=== PATIENT | female | born 1985 | race Caucasian/White ===

== ENCOUNTER → 2019-11-20 | Outpatient (CLI) | payer OTHER ==
--- NOTE | 2019-11-20 15:18 | XR ---
EXAMINATION TYPE: XR foot complete LT DATE OF EXAM: 11/20/2019 CLINICAL HISTORY: pain TECHNIQUE: Frontal, lateral and oblique images of the left foot are obtained. COMPARISON: None. FINDINGS: There is no acute fracture/dislocation evident. The joint spaces appear within normal card its. Plantar and dorsal calcaneal spur formation noted. Dorsal soft tissue swelling identified. IMPRESSION: There is no acute fracture or dislocation. ICD 10 NO FRACTURE, INITIAL EVALUATION
== END | disposition home or self-care (01) ==
LOC: RADXRMAIN 14:48
PROVIDERS: ATTEND Family Medicine
DX: M79.672 Pain in left foot (principal)

== ENCOUNTER 2020-04-12 00:40 | Emergency (ER) | payer OTHER ==
[2020-04-12 00:44] VITALS: BP 143/82; RESP 22; TEMP 99.3
[2020-04-12] MEDS ORDERED: ALBUTEROL NEBULIZED 2.5 MG/3 ML INHALATION STA ×2 (01:13→02:10)
[2020-04-12] MEDS ORDERED: IPRATROPIUM-ALBUTEROL 3 ML NEB INHALATION STA (01:13)
[2020-04-12] MEDS ORDERED: predniSONE 20 MG TAB PO STA (01:13)
--- NOTE | 2020-04-12 01:17 | ED ---
SOB HPI - General Chief Complaint: Shortness of Breath Stated Complaint: Chest tightness Time Seen by Provider: 04/12/20 00:58 Source: patient Mode of arrival: wheelchair Limitations: no limitations - History of Present Illness Initial Comments: his patient is a 34-year-old woman with history of asthma who complains of approximately 6-7 days of worsening symptoms similar to previous asthma exacerbations. He states that she is and that she has developed a nonproductive coughand shortness of breath and a feeling of chest tightness, though no lance pain. MD Complaint: shortness of breath, cough Onset/Timin -: days(s) Consistency: constant Improves With: nothing Worsens With: nothing Known History Of: asthma Associated Symptoms: cough Treatments Prior to Arrival: bronchodilator - Related Data Home Oxygen Therapy: No Home Medications Medication Instructions Recorded Confirmed Citalopram Hydrobromide [CeleXA] 40 mg PO DAILY 07/24/14 03/03/16 Previous Rx's Medication Instructions Recorded predniSONE 60 mg PO DAILY #30 tab 04/12/20 Allergies Allergy/AdvReac Type Severity Reaction Status Date / Time No Known Allergies Allergy Verified 04/12/20 00:45 Review of Systems ROS Statement: Those systems with pertinent positive or pertinent negative responses have been documented in the HPI. ROS Other: All systems not noted in ROS Statement are negative. Constitutional: Denies: fever, chills, weakness ENT: Denies: throat pain, congestion Respiratory: Reports: cough, dyspnea, wheezes. Denies: hemoptysis Cardiovascular: Denies: chest pain, palpitations, edema, syncope Gastrointestinal: Denies: abdominal pain, nausea, vomiting Genitourinary: Denies: dysuria, hematuria Musculoskeletal: Denies: back pain Skin: Denies: rash Neurological: Denies: headache, weakness Past Medical History Past Medical History: Asthma History of Any Multi-Drug Resistant Organisms: MRSA Date of last positivie culture/infection: 2012 MDRO Source:: lt knee Past Surgical History: Appendectomy, Section, Orthopedic Surgery, Tonsillectomy Additional Past Surgical History / Comment(s): wrist Past Psychological History: Anxiety, Depression Smoking Status: Never smoker Past Alcohol Use History: Rare Past Drug Use History: None Reported General Exam Limitations: no limitations General appearance: alert, in no apparent distress Head exam: Present: atraumatic, normocephalic Eye exam: Present: normal appearance. Absent: scleral icterus, conjunctival injection ENT exam: Present: normal oropharynx Neck exam: Present: normal inspection Respiratory exam: Present: wheezes. Absent: respiratory distress, rales, rhonchi, stridor, accessory muscle use, decreased breath sounds Cardiovascular Exam: Present: regular rate, normal rhythm, normal heart sounds. Absent: systolic murmur, diastolic murmur, rubs, gallop GI/Abdominal exam: Present: soft. Absent: tenderness Extremities exam: Present: normal inspection, normal capillary refill. Absent: pedal edema, calf tenderness Back exam: Present: normal inspection. Absent: CVA tenderness (R), CVA tenderness (L) Neurological exam: Present: alert Skin exam: Present: warm, dry, intact, normal color. Absent: rash Course Vital Signs 04/12/20 04/12/20 04/12/20 00:42 01:35 01:51 Temperature 99.3 F Pulse Rate 62 68 76 Respiratory 22 Rate Blood Pressure 143/82 O2 Sat by Pulse 100 Oximetry 04/12/20 04/12/20 02:21 02:30 Temperature Pulse Rate 76 76 Respiratory Rate Blood Pressure O2 Sat by Pulse Oximetry Medical Decision Making - Lab Data Lab Results 04/12/20 Range/Units 01:30 Coronavirus (PCR) Not Detected (Not Detectd) Disposition Clinical Impression: Asthma with acute exacerbation Disposition: HOME SELF-CARE Condition: Good Instructions (If sedation given, give patient instructions): Asthma (ED) Prescriptions: predniSONE 60 mg PO DAILY #30 tab Is patient prescribed a controlled substance at d/c from ED?: No Referrals: Sami Carter III, MD [Primary Care Provider] - 1-2 days
[2020-04-12 01:52] VITALS: PULSE 76
== END 2020-04-12 03:11 | disposition home or self-care (01) ==
LOC: EC 00:40
DX: J45.901 Unspecified asthma with (acute) exacerbation (principal); F41.9 Anxiety disorder, unspecified; F32.9 Major depressive disorder, single episode, unspecified; Z79.899 Other long term (current) drug therapy; Z20.828 Contact with and (suspected) exposure to other viral communicable diseases; Z86.14 Personal history of Methicillin resistant Staphylococcus aureus infection
CPT/HCPCS: 94640 ×2; 87635; 99285; J7512

== ENCOUNTER → 2021-01-15 | Outpatient (CLI) | payer BC ==
[2021-01-15 23:32] LABS: Basophils # (A) 0.03 X 10*3/uL (0.00-0.10); Basophils % (A) 0.3 %; Eosinophils # (A) 0.09 X 10*3/uL (0.04-0.35); HCT 40.4 % (37.2-46.3); HGB 12.6 g/dL (12.0-15.0); Lymphocytes # (A) 2.43 X 10*3/uL (0.90-5.00); Lymphocytes % (A) 26.4 %; MCHC 31.2 g/dL (32.0-37.0); MCV 89.8 fL (80.0-97.0); Mean Platelet Volume 11.6 fL (9.5-12.2); Monocytes # (A) 0.66 X 10*3/uL (0.20-1.00); Monocytes % (A) 7.2 %; Neutrophils # (A) 5.96 X 10*3/uL (1.80-7.70); Neutrophils % (A) 64.8 %; Platelet Count 185 X 10*3/uL (140-440); RDW 12.9 % (11.5-14.5)
[2021-01-16 01:23] LABS: Hemoglobin A1C 5.3 % (4.0-6.0)
[2021-01-16 14:45] LABS: HIV 2 AB Non-Reactive (Non-Reactive); HIV AB P24 Non-Reactive (Non-Reactive); HIV P24 AG Non-Reactive (Non-Reactive)
[2021-01-16 18:53] LABS: Uric Acid 4.5 mg/dL (2.9-7.7)
== END | disposition home or self-care (01) ==
LOC: LABWHC1 15:12
PROVIDERS: ATTEND Obstetrics & Gynecology
DX: Z34.81 Encounter for supervision of other normal pregnancy, first trimester (principal); Z3A.00 Weeks of gestation of pregnancy not specified
CPT/HCPCS: 36415; 82950; 83036; 84450; 84460; 84550; 85025; 86762; 86780; 86900; 86901; 87390

== ENCOUNTER 2021-02-18 08:39 | Emergency (ER) | payer BC, OTHER ==
[2021-02-18 08:43] VITALS: RESP 18; TEMP 97.9
[2021-02-18] MEDS ORDERED: MAG HYDROX/AL HYDROX/SIMETH 30 ML CUP PO STA (08:56)
[2021-02-18] MEDS ORDERED: SODIUM CHLORIDE 0.9% 1,000 ML IV ONE (08:56)
--- NOTE | 2021-02-18 08:59 | ED ---
Abdominal Pain HPI - General Chief Complaint: Abdominal Pain Stated Complaint: upper abd pain Time Seen by Provider: 02/18/21 08:47 Source: patient, RN notes reviewed Mode of arrival: ambulatory Limitations: no limitations - History of Present Illness Initial Comments: This a 35-year-old female presents emergency Department chief complaint of upper upper quadrant pain. Patient states has been present last few days. Patient denies any significant heartburn, nausea vomiting diarrhea constipation no dysuria no hematuria patient is currently 17 weeks she's had prior appendectomy and section. Patient denies fevers chills chest pain shortness breath headache dizziness. - Related Data Home Medications Medication Instructions Recorded Confirmed Citalopram Hydrobromide [CeleXA] 40 mg PO DAILY 07/24/14 03/03/16 Previous Rx's Medication Instructions Recorded predniSONE 60 mg PO DAILY #30 tab 04/12/20 Allergies Allergy/AdvReac Type Severity Reaction Status Date / Time No Known Allergies Allergy Verified 02/18/21 08:41 Review of Systems ROS Statement: Those systems with pertinent positive or pertinent negative responses have been documented in the HPI. ROS Other: All systems not noted in ROS Statement are negative. Past Medical History Past Medical History: Asthma History of Any Multi-Drug Resistant Organisms: MRSA Date of last positivie culture/infection: 2012 MDRO Source:: lt knee Past Surgical History: Appendectomy, Section, Orthopedic Surgery, Tonsillectomy Additional Past Surgical History / Comment(s): wrist Past Psychological History: Anxiety, Depression Smoking Status: Never smoker Past Alcohol Use History: Rare Past Drug Use History: None Reported General Exam Limitations: no limitations General appearance: alert, in no apparent distress Head exam: Present: atraumatic, normocephalic, normal inspection Neck exam: Present: normal inspection. Absent: tenderness, meningismus, lymphadenopathy Respiratory exam: Present: normal lung sounds bilaterally. Absent: respiratory distress, wheezes, rales, rhonchi, stridor Cardiovascular Exam: Present: regular rate, normal rhythm, normal heart sounds. Absent: systolic murmur, diastolic murmur, rubs, gallop, clicks GI/Abdominal exam: Present: soft, tenderness (Left upper quadrant), normal bowel sounds. Absent: distended, guarding, rebound, rigid Back exam: Absent: CVA tenderness (R), CVA tenderness (L) Neurological exam: Present: alert Skin exam: Present: warm, dry, intact, normal color. Absent: rash Course Vital Signs 02/18/21 08:41 Temperature 97.9 F Pulse Rate 64 Respiratory 18 Rate Blood Pressure 134/85 O2 Sat by Pulse 100 Oximetry Medical Decision Making - Medical Decision Making Labs, urinalysis, ultrasound are all unremarkable. Patient had no relief with Maalox this may be related to abdominal wall pain patient feels comfortable discharged. Return parameters were discussed. - Lab Data Result diagrams: 02/18/21 09:09 02/18/21 09:09 Lab Results 02/18/21 02/18/21 02/18/21 Range/Units 09:09 09:09 09:09 WBC 9.4 (3.8-10.6) k/uL RBC 4.38 (3.80-5.40) m/uL Hgb 12.9 (11.4-16.0) gm/dL Hct 38.6 (34.0-46.0) % MCV 88.1 (80.0-100.0) fL MCH 29.6 (25.0-35.0) pg MCHC 33.6 (31.0-37.0) g/dL RDW 12.7 (11.5-15.5) % Plt Count 175 (150-450) k/uL MPV 9.1 Neutrophils % 74 % Lymphocytes % 19 % Monocytes % 4 % Eosinophils % 2 % Basophils % 0 % Neutrophils # 6.9 (1.3-7.7) k/uL Lymphocytes # 1.8 (1.0-4.8) k/uL Monocytes # 0.4 (0-1.0) k/uL Eosinophils # 0.1 (0-0.7) k/uL Basophils # 0.0 (0-0.2) k/uL Sodium 135 L (137-145) mmol/L Potassium 4.4 (3.5-5.1) mmol/L Chloride 105 (98-107) mmol/L Carbon Dioxide 24 (22-30) mmol/L Anion Gap 6 mmol/L BUN 9 (7-17) mg/dL Creatinine 0.55 (0.52-1.04) mg/dL Est GFR (CKD-EPI)AfAm >90 (>60 ml/min/1.73 sqM) Est GFR (CKD-EPI)NonAf >90 (>60 ml/min/1.73 sqM) Glucose 107 H (74-99) mg/dL Calcium 9.3 (8.4-10.2) mg/dL Total Bilirubin 0.4 (0.2-1.3) mg/dL AST 16 (14-36) U/L ALT 12 (4-34) U/L Alkaline Phosphatase 49 (38-126) U/L Total Protein 6.1 L (6.3-8.2) g/dL Albumin 3.3 L (3.5-5.0) g/dL Urine Color Light Yellow Urine Appearance Clear (Clear) Urine pH 6.5 (5.0-8.0) Ur Specific [place] 1.008 (1.001-1.035) Urine Protein Negative (Negative) Urine Glucose (UA) Negative (Negative) Urine Ketones Negative (Negative) Urine Blood Negative (Negative) Urine Nitrite Negative (Negative) Urine Bilirubin Negative (Negative) Urine Urobilinogen <2.0 (<2.0) mg/dL Ur Leukocyte Esterase Negative (Negative) Heterophile Antibody (Negative) 02/18/21 Range/Units 09:09 WBC (3.8-10.6) k/uL RBC (3.80-5.40) m/uL Hgb (11.4-16.0) gm/dL Hct (34.0-46.0) % MCV (80.0-100.0) fL MCH (25.0-35.0) pg MCHC (31.0-37.0) g/dL RDW (11.5-15.5) % Plt Count (150-450) k/uL MPV Neutrophils % % Lymphocytes % % Monocytes % % Eosinophils % % Basophils % % Neutrophils # (1.3-7.7) k/uL Lymphocytes # (1.0-4.8) k/uL Monocytes # (0-1.0) k/uL Eosinophils # (0-0.7) k/uL Basophils # (0-0.2) k/uL Sodium (137-145) mmol/L Potassium (3.5-5.1) mmol/L Chloride (98-107) mmol/L Carbon Dioxide (22-30) mmol/L Anion Gap mmol/L BUN (7-17) mg/dL Creatinine (0.52-1.04) mg/dL Est GFR (CKD-EPI)AfAm (>60 ml/min/1.73 sqM) Est GFR (CKD-EPI)NonAf (>60 ml/min/1.73 sqM) Glucose (74-99) mg/dL Calcium (8.4-10.2) mg/dL Total Bilirubin (0.2-1.3) mg/dL AST (14-36) U/L ALT (4-34) U/L Alkaline Phosphatase (38-126) U/L Total Protein (6.3-8.2) g/dL Albumin (3.5-5.0) g/dL Urine Color Urine Appearance (Clear) Urine pH (5.0-8.0) Ur Specific [place] (1.001-1.035) Urine Protein (Negative) Urine Glucose (UA) (Negative) Urine Ketones (Negative) Urine Blood (Negative) Urine Nitrite (Negative) Urine Bilirubin (Negative) Urine Urobilinogen (<2.0) mg/dL Ur Leukocyte Esterase (Negative) Heterophile Antibody Negative (Negative) Disposition Clinical Impression: Abdominal pain Disposition: HOME SELF-CARE Condition: Stable Instructions (If sedation given, give patient instructions): Abdominal Pain (ED) Additional Instructions: Please return to the Emergency Department if symptoms worsen or any other tavares rns. Is patient prescribed a controlled substance at d/c from ED?: No Referrals: Sami Carter III, MD [Primary Care Provider] - 1-2 days Time of Disposition: 10:34
[2021-02-18 09:23] LABS: Basophils % (A) 0 %; Eosinophils # (A) 0.1 k/uL (0-0.7); Eosinophils % (A) 2 %; HCT 38.6 % (34.0-46.0); HGB 12.9 gm/dL (11.4-16.0); Lymphocytes # (A) 1.8 k/uL (1.0-4.8); Lymphocytes % (A) 19 %; MCH 29.6 pg (25.0-35.0); MCHC 33.6 g/dL (31.0-37.0); MCV 88.1 fL (80.0-100.0); Mean Platelet Volume 9.1; Monocytes # (A) 0.4 k/uL (0-1.0); Monocytes % (A) 4 %; Neutrophils # (A) 6.9 k/uL (1.3-7.7); Neutrophils % (A) 74 %; Platelet Count 175 k/uL (150-450); RBC 4.38 m/uL (3.80-5.40); RDW 12.7 % (11.5-15.5); WBC 9.4 k/uL (3.8-10.6)
[2021-02-18 09:27] LABS: Appearance,Urine Clear (Clear); Bilirubin,Urine Negative (Negative); Blood,Urine Negative (Negative); Color,Urine Light Yellow; Glucose,Urine (UA) Negative (Negative); Ketones,Urine Negative (Negative); Leukocyte Esterase,Urine Negative (Negative); Nitrite,Urine Negative (Negative); PH, Urine 6.5 (5.0-8.0); Protein,Urine Negative (Negative); Specific Gravity,Urine 1.008 (1.001-1.035); Urobilinogen,Urine <2.0 mg/dL (<2.0)
[2021-02-18 09:35] LABS: ALT 12 U/L (4-34); AST 16 U/L (14-36); African American GFR (CKD) >90 (>60 ml/min/1.73 sqM); Albumin 3.3 g/dL (3.5-5.0); Alkaline Phosphatase 49 U/L (38-126); Anion Gap 6 mmol/L; Blood Urea Nitrogen 9 mg/dL (7-17); Calcium 9.3 mg/dL (8.4-10.2); Carbon Dioxide 24 mmol/L (22-30); Chloride 105 mmol/L (98-107); Glucose 107 mg/dL (74-99); Non-African American GFR(CKD) >90 (>60 ml/min/1.73 sqM); Potassium 4.4 mmol/L (3.5-5.1); Sodium 135 mmol/L (137-145); Total Bilirubin 0.4 mg/dL (0.2-1.3); Total Protein 6.1 g/dL (6.3-8.2)
--- NOTE | 2021-02-18 09:53 | US ---
EXAMINATION TYPE: US abdomen limited DATE OF EXAM: 02/18/2021 COMPARISON: NONE CLINICAL HISTORY: LUQ pain. EXAM MEASUREMENTS: Spleen: 14.6 cm Left Kidney: 14.1 x 6.0 x 6.8 cm GB wall: 0.3 cm CBD: 0.4 cm 1. Spleen: wnl 2. Left Kidney: No hydronephrosis or masses seen 3. GB no stones seen Spleen is mildly enlarged. No surrounding ascites or focal intrasplenic mass. No left-sided hydroneph rosis. Left kidney slightly enlarged in size. Gallbladder seen without stones. No extrahepatic biliar y dilatation. IMPRESSION: No acute findings identified on limited abdominal ultrasound.
[2021-02-18 10:54] VITALS: BP 128/80; PULSE 72
== END 2021-02-18 10:53 | disposition home or self-care (01) ==
LOC: EC 08:39
DX: O26.892 Other specified pregnancy related conditions, second trimester (principal); R10.12 Left upper quadrant pain; O99.512 Diseases of the respiratory system complicating pregnancy, second trimester; J45.909 Unspecified asthma, uncomplicated; O99.342 Other mental disorders complicating pregnancy, second trimester; F32.9 Major depressive disorder, single episode, unspecified; Z79.52 Long term (current) use of systemic steroids; Z79.899 Other long term (current) drug therapy; Z3A.17 17 weeks gestation of pregnancy
CPT/HCPCS: 36415; 76705; 80053; 81003; 85025; 86308; 96360; 99284

== ENCOUNTER 2021-02-19 08:46 | Emergency (ER) | payer BC ==
[2021-02-19 08:59] VITALS: RESP 18; TEMP 98.3
[2021-02-19] MEDS ORDERED: SODIUM CHLORIDE 0.9% 1,000 ML IV STA (09:16)
--- NOTE | 2021-02-19 09:31 | ED ---
Abdominal Pain HPI - General Chief Complaint: Abdominal Pain Stated Complaint: LUQ pain, Revisit Time Seen by Provider: 02/19/21 09:08 Source: patient, RN notes reviewed Mode of arrival: ambulatory Limitations: no limitations - History of Present Illness Initial Comments: This a 35-year-old female presents emergency Department with chief complaint of upper abdominal lower chest discomfort. She states it started last couple days she is currently seen states seemed to get worse. She's not feel short of breath states it does hurt when she leans forward she has some pain and radiates towards her left anterior shoulder region no palpitations no fevers chills no night sweats no exertional symptoms denies any lower abdominal pain. Patient is currently symptom weeks has had prior sections no complaints of vaginal bleeding vaginal discharge no history of PE or DVT patient is currently taking aspirin as she states she was told she was advanced maternal age patient states it does hurt if you press on her chest. - Related Data Home Medications Medication Instructions Recorded Confirmed Aspirin EC [Ecotrin Low Dose] 81 mg PO HS 02/19/21 02/19/21 Doi-Qxuk-Dtedc Acid 1 cap PO DAILY 02/19/21 02/19/21 [-U Capsule (formulary)] Allergies Allergy/AdvReac Type Severity Reaction Status Date / Time No Known Allergies Allergy Verified 02/19/21 09:18 Review of Systems ROS Statement: Those systems with pertinent positive or pertinent negative responses have been documented in the HPI. ROS Other: All systems not noted in ROS Statement are negative. Past Medical History Past Medical History: Asthma History of Any Multi-Drug Resistant Organisms: MRSA Date of last positivie culture/infection: 2012 MDRO Source:: lt knee Past Surgical History: Appendectomy, Section, Orthopedic Surgery, Tonsillectomy Additional Past Surgical History / Comment(s): wrist Past Psychological History: Anxiety, Depression Smoking Status: Never smoker Past Alcohol Use History: Rare Past Drug Use History: None Reported General Exam Limitations: no limitations General appearance: alert, in no apparent distress Head exam: Present: atraumatic, normocephalic, normal inspection Eye exam: Present: normal appearance, PERRL, EOMI. Absent: scleral icterus, conjunctival injection, periorbital swelling ENT exam: Present: normal exam, mucous membranes moist Neck exam: Present: normal inspection, full ROM. Absent: tenderness, meningismus, lymphadenopathy Respiratory exam: Present: normal lung sounds bilaterally, chest wall tenderness (Moderate left). Absent: respiratory distress, wheezes, rales, rhonchi, stridor Cardiovascular Exam: Present: regular rate, normal rhythm, normal heart sounds. Absent: systolic murmur, diastolic murmur, rubs, gallop, clicks GI/Abdominal exam: Present: soft, normal bowel sounds. Absent: distended, tenderness, guarding, rebound, rigid Back exam: Absent: CVA tenderness (R), CVA tenderness (L) Neurological exam: Present: alert Course Vital Signs 02/19/21 02/19/21 08:55 10:58 Temperature 98.3 F Pulse Rate 86 82 Respiratory 18 18 Rate Blood Pressure 135/85 139/80 O2 Sat by Pulse 99 99 Oximetry Medical Decision Making - Medical Decision Making X-ray, labs EKG unremarkable. Patient is reproducible chest wall pain this may be related to costochondritis. Patient we discharged in stable condition return parameters discussed. - Lab Data Result diagrams: 02/19/21 09:20 02/19/21 09:20 Lab Results 02/19/21 02/19/21 02/19/21 Range/Units 09:20 09:20 09:20 WBC 9.4 (3.8-10.6) k/uL RBC 4.38 (3.80-5.40) m/uL Hgb 13.3 (11.4-16.0) gm/dL Hct 38.4 (34.0-46.0) % MCV 87.6 (80.0-100.0) fL MCH 30.4 (25.0-35.0) pg MCHC 34.7 (31.0-37.0) g/dL RDW 12.8 (11.5-15.5) % Plt Count 162 (150-450) k/uL MPV 8.6 Neutrophils % 75 % Lymphocytes % 18 % Monocytes % 3 % Eosinophils % 2 % Basophils % 0 % Neutrophils # 7.1 (1.3-7.7) k/uL Lymphocytes # 1.7 (1.0-4.8) k/uL Monocytes # 0.3 (0-1.0) k/uL Eosinophils # 0.2 (0-0.7) k/uL Basophils # 0.0 (0-0.2) k/uL Sodium 135 L (137-145) mmol/L Potassium 4.1 (3.5-5.1) mmol/L Chloride 108 H (98-107) mmol/L Carbon Dioxide 19 L (22-30) mmol/L Anion Gap 8 mmol/L BUN 8 (7-17) mg/dL Creatinine 0.45 L (0.52-1.04) mg/dL Est GFR (CKD-EPI)AfAm >90 (>60 ml/min/1.73 sqM) Est GFR (CKD-EPI)NonAf >90 (>60 ml/min/1.73 sqM) Glucose 111 H (74-99) mg/dL Plasma Lactic Acid Roger (0.7-2.0) mmol/L Calcium 9.1 (8.4-10.2) mg/dL Total Bilirubin 0.5 (0.2-1.3) mg/dL AST 16 (14-36) U/L ALT 12 (4-34) U/L Alkaline Phosphatase 48 (38-126) U/L Troponin I (0.000-0.034) ng/mL C-Reactive Protein 2.1 H (<1.0) mg/dL Total Protein 6.2 L (6.3-8.2) g/dL Albumin 3.4 L (3.5-5.0) g/dL Amylase 62 (30-110) U/L Lipase 109 (23-300) U/L Urine Color Light Yellow Urine Appearance Clear (Clear) Urine pH 7.0 (5.0-8.0) Ur Specific [place] 1.005 (1.001-1.035) Urine Protein Negative (Negative) Urine Glucose (UA) Negative (Negative) Urine Ketones Negative (Negative) Urine Blood Negative (Negative) Urine Nitrite Negative (Negative) Urine Bilirubin Negative (Negative) Urine Urobilinogen <2.0 (<2.0) mg/dL Ur Leukocyte Esterase Negative (Negative) 02/19/21 02/19/21 Range/Units 09:20 09:20 WBC (3.8-10.6) k/uL RBC (3.80-5.40) m/uL Hgb (11.4-16.0) gm/dL Hct (34.0-46.0) % MCV (80.0-100.0) fL MCH (25.0-35.0) pg MCHC (31.0-37.0) g/dL RDW (11.5-15.5) % Plt Count (150-450) k/uL MPV Neutrophils % % Lymphocytes % % Monocytes % % Eosinophils % % Basophils % % Neutrophils # (1.3-7.7) k/uL Lymphocytes # (1.0-4.8) k/uL Monocytes # (0-1.0) k/uL Eosinophils # (0-0.7) k/uL Basophils # (0-0.2) k/uL Sodium (137-145) mmol/L Potassium (3.5-5.1) mmol/L Chloride (98-107) mmol/L Carbon Dioxide (22-30) mmol/L Anion Gap mmol/L BUN (7-17) mg/dL Creatinine (0.52-1.04) mg/dL Est GFR (CKD-EPI)AfAm (>60 ml/min/1.73 sqM) Est GFR (CKD-EPI)NonAf (>60 ml/min/1.73 sqM) Glucose (74-99) mg/dL Plasma Lactic Acid Roger 0.7 (0.7-2.0) mmol/L Calcium (8.4-10.2) mg/dL Total Bilirubin (0.2-1.3) mg/dL AST (14-36) U/L ALT (4-34) U/L Alkaline Phosphatase (38-126) U/L Troponin I <0.012 (0.000-0.034) ng/mL C-Reactive Protein (<1.0) mg/dL Total Protein (6.3-8.2) g/dL Albumin (3.5-5.0) g/dL Amylase (30-110) U/L Lipase (23-300) U/L Urine Color Urine Appearance (Clear) Urine pH (5.0-8.0) Ur Specific [place] (1.001-1.035) Urine Protein (Negative) Urine Glucose (UA) (Negative) Urine Ketones (Negative) Urine Blood (Negative) Urine Nitrite (Negative) Urine Bilirubin (Negative) Urine Urobilinogen (<2.0) mg/dL Ur Leukocyte Esterase (Negative) Disposition Clinical Impression: Chest wall pain Disposition: HOME SELF-CARE Condition: Stable Instructions (If sedation given, give patient instructions): Chest Pain (ED) Additional Instructions: Please return to the Emergency Department if symptoms worsen or any other concerns. Is patient prescribed a controlled substance at d/c from ED?: No Referrals: Sami Carter III, MD [Primary Care Provider] - 1-2 days Time of Disposition: 11:13
[2021-02-19 09:38] LABS: Basophils % (A) 0 %; Eosinophils # (A) 0.2 k/uL (0-0.7); Eosinophils % (A) 2 %; HCT 38.4 % (34.0-46.0); HGB 13.3 gm/dL (11.4-16.0); Lymphocytes # (A) 1.7 k/uL (1.0-4.8); Lymphocytes % (A) 18 %; MCH 30.4 pg (25.0-35.0); MCHC 34.7 g/dL (31.0-37.0); MCV 87.6 fL (80.0-100.0); Mean Platelet Volume 8.6; Monocytes # (A) 0.3 k/uL (0-1.0); Monocytes % (A) 3 %; Neutrophils # (A) 7.1 k/uL (1.3-7.7); Neutrophils % (A) 75 %; Platelet Count 162 k/uL (150-450); RBC 4.38 m/uL (3.80-5.40); RDW 12.8 % (11.5-15.5); WBC 9.4 k/uL (3.8-10.6)
[2021-02-19 09:53] LABS: Appearance,Urine Clear (Clear); Bilirubin,Urine Negative (Negative); Blood,Urine Negative (Negative); Color,Urine Light Yellow; Glucose,Urine (UA) Negative (Negative); Ketones,Urine Negative (Negative); Leukocyte Esterase,Urine Negative (Negative); Nitrite,Urine Negative (Negative); Protein,Urine Negative (Negative); Specific Gravity,Urine 1.005 (1.001-1.035); Urobilinogen,Urine <2.0 mg/dL (<2.0)
[2021-02-19 09:57] LABS: ALT 12 U/L (4-34); AST 16 U/L (14-36); African American GFR (CKD) >90 (>60 ml/min/1.73 sqM); Albumin 3.4 g/dL (3.5-5.0); Alkaline Phosphatase 48 U/L (38-126); Amylase 62 U/L (30-110); Anion Gap 8 mmol/L; Blood Urea Nitrogen 8 mg/dL (7-17); C Reactive Protein 2.1 mg/dL (<1.0); Calcium 9.1 mg/dL (8.4-10.2); Carbon Dioxide 19 mmol/L (22-30); Chloride 108 mmol/L (98-107); Glucose 111 mg/dL (74-99); Lipase 109 U/L (23-300); Non-African American GFR(CKD) >90 (>60 ml/min/1.73 sqM); Potassium 4.1 mmol/L (3.5-5.1); Sodium 135 mmol/L (137-145); Total Bilirubin 0.5 mg/dL (0.2-1.3); Total Protein 6.2 g/dL (6.3-8.2)
--- NOTE | 2021-02-19 10:33 | XR ---
EXAMINATION TYPE: XR chest 2V DATE OF EXAM: 02/19/2021 COMPARISON: NONE HISTORY: Left-sided chest pain, currently 17 weeks . TECHNIQUE: Frontal and lateral views of the chest are obtained. FINDINGS: Low lung volumes. There is no focal air space opacity, pleural effusion, or pneumothorax se en. The cardiac silhouette size is within normal limits. The osseous structures are intact. Dupuyer ing EKG leads. IMPRESSION: No acute cardiopulmonary process.
[2021-02-19 10:59] VITALS: BP 139/80; PULSE 82
== END 2021-02-19 11:19 | disposition home or self-care (01) ==
LOC: EC 08:46
DX: O26.892 Other specified pregnancy related conditions, second trimester (principal); O34.219 Maternal care for unspecified type scar from previous cesarean delivery; O99.512 Diseases of the respiratory system complicating pregnancy, second trimester; R07.89 Other chest pain; J45.909 Unspecified asthma, uncomplicated; F41.9 Anxiety disorder, unspecified; F32.9 Major depressive disorder, single episode, unspecified; Z3A.17 17 weeks gestation of pregnancy; Z79.82 Long term (current) use of aspirin; Z90.49 Acquired absence of other specified parts of digestive tract
CPT/HCPCS: 36415; 71046; 80053; 81003; 82150; 83605; 83690; 84484; 85025; 86140; 93005; 96360; 99285

== ENCOUNTER → 2022-07-02 | Outpatient (CLI) | payer BC ==
--- NOTE | 2022-07-02 11:53 | US ---
EXAMINATION TYPE: US venous doppler duplex UE LT DATE OF EXAM: 07/02/2022 COMPARISON: NONE CLINICAL HISTORY: I82.629 DVT. pain and redness patient donates plasma. SIDE PERFORMED: Left Left Arm: Negative for DVT IMPRESSION: 1 left upper extremity ultrasound negative for deep venous spondylosis.
== END | disposition home or self-care (01) ==
LOC: RADUSWWP 10:59
PROVIDERS: ATTEND Internal Medicine Interventional Cardiology
DX: I82.629 Acute embolism and thrombosis of deep veins of unspecified upper extremity (principal)

== ENCOUNTER → 2022-10-14 | Outpatient (CLI) | payer BC ==
[2022-10-14 13:19] VITALS: BP 125/86; PULSE 80; TEMP 99; BMI 57.4
--- NOTE | 2022-10-14 15:54 | P.HPBAR ---
Bariatric H&P - History & Physicial H&P Date: 10/14/22 History & Physicial: Visit/CC: initial clinic visit Patient initial contact: Initial weight: Initial weight in pounds: Height: 5 ft 4 in Initial BMI: Last weight: Current weight: 151.953 kg Current weight in pounds: 335.00 Current BMI: 57.4 [place] body weight (based on NIH guidelines): 54.431 kg Excess body weight loss: The patient is a 37 year-old F who presents for Bariatric Assessment. Patient comes in interested in sleeve gastrectomy. BMI 57. No tobacco use. Patient has minimal GERD symptoms. Some exercise-induced asthma. States she does not snore and has no history of sleep apnea. Patient has 4 children at home with her youngest being 14 months. No history of known hernias. Abdominal surgeries include and appendectomy. No history of DVT or dysphagia. Review of Systems The patient denies any acute changes in vision or hearing, no dysphagia or odynophagia, no chest pain or shortness of breath, no dysuria or hematuria, no headache, no runny nose, no rectal bleeding or melena, no unexplained weight loss Past Medical History Past Medical History: Asthma History of Any Multi-Drug Resistant Organisms: MRSA Year Discovered:: 2012 MDRO Source:: lt knee Past Surgical History: Appendectomy, Section, Orthopedic Surgery, Tonsillectomy Additional Past Surgical History / Comment(s): LT wrist SX Past Anesthesia/Blood Transfusion Reactions: No Reported Reaction Past Psychological History: Anxiety, Depression Additional Psychological History / Comment(s): NOT ON ANY MEDS AT THIS TIME Smoking Status: Never smoker Past Alcohol Use History: None Reported, Rare Past Drug Use History: None Reported - Past Family History Mother Family Medical History: Hyperlipidemia, Hypertension, Rheumatoid Arthritis (RA) Surgical - Exam Vital Signs Temp Pulse BP 99 F 80 125/86 10/14/22 13:14 10/14/22 13:14 10/14/22 13:14 Physical exam: General: Well-developed, well-nourished HEENT: Normocephalic, sclerae nonicteric Abdomen: Nontender, nondistended Extremities: No edema Neuro: Alert and oriented Bariatric Assessment & Plan (1) Morbid obesity with BMI of 50.0-59.9, adult Narrative/Plan: 37-year-old female with morbid obesity. Surgical options reviewed with the patient in detail. Risks and benefits of the procedures along with the expected postoperative course and weight loss discussed in detail. All questions answered. The patient remains interested in sleeve gastrectomy at this time. We'll plan preoperative EGD. We'll obtain appropriate preoperative documentation from patient's primary care physician and psychological assessment. Status: Acute Bariatric Checklist Checklist: Plan: Checklist: EGD: 1. Hiatal hernia: 2. H. Pylori: HgbA1c: Vitamin D: Smoking: Never smoker Primary care physician referral: dr yost Psychiatry clearance: Cardiology clearance: Sleep study: Diet journal: VTE risk score: VTE risk level: Rehab needs at discharge:
== END | disposition home or self-care (01) ==
LOC: BARWHC3 12:52
PROVIDERS: ATTEND Surgery
DX: E66.01 Morbid (severe) obesity due to excess calories (principal); J45.909 Unspecified asthma, uncomplicated; F32.A Depression, unspecified; F41.9 Anxiety disorder, unspecified; Z83.42 Family history of familial hypercholesterolemia; Z68.43 Body mass index [BMI] 50.0-59.9, adult; Z82.49 Family history of ischemic heart disease and other diseases of the circulatory system; Z98.84 Bariatric surgery status; Z82.61 Family history of arthritis; Z98.890 Other specified postprocedural states
CPT/HCPCS: 99202

== ENCOUNTER → 2022-10-20 | Outpatient (CLI) | payer BC ==
[2022-10-20 15:05] LABS: HCT 44.2 % (37.2-46.3); HGB 13.5 g/dL (12.0-15.0); MCH 26.3 pg (27.0-32.0); MCHC 30.5 g/dL (32.0-37.0); Mean Platelet Volume 10.9 fL (9.5-12.2); NRBC Per 100 WBC 0 /100 WBCS (0.0-0.0); Platelet Count 222 X 10*3/uL (140-440); RBC 5.14 X 10*6/uL (4.10-5.20); RDW 14.4 % (11.5-14.5); WBC 7.85 X 10*3/uL (4.50-10.00)
[2022-10-20 16:04] LABS: African American GFR (CKD) 107.9 (60.0-200.0); Albumin/Globulin Ratio 1.62 (1.60-3.17); Anion Gap 10.5 mmol/L (10.00-18.00); BUN/Creat Ratio 20.67 Ratio (12.00-20.00); Blood Urea Nitrogen 16.6 mg/dL (9.0-27.0); Calcium 9.1 mg/dL (8.7-10.3); Carbon Dioxide 25.9 mmol/L (20.0-27.5); Globulin 2.5 g/dL (1.6-3.3); Non-African American GFR(CKD) 93.1 (60.0-200.0); Potassium 4.5 mmol/L (3.5-5.5); Total Bilirubin 0.4 mg/dL (0.30-1.20); Total Protein 6.5 g/dL (6.2-8.2)
== END | disposition home or self-care (01) ==
LOC: LABWHC1 08:22
PROVIDERS: ATTEND Surgery
DX: E55.9 Vitamin D deficiency, unspecified (principal); E66.01 Morbid (severe) obesity due to excess calories; K90.89 Other intestinal malabsorption; Z71.51 Drug abuse counseling and surveillance of drug abuser
CPT/HCPCS: 36415; 80053; 80323; 82306; 82607; 82746; 83036; 83540; 84425; 85027; 93005

== ENCOUNTER 2022-11-16 10:42 | Day surgery (SDC) | payer BC ==
[2022-11-16] MEDS ORDERED: LACTATED RINGERS 1,000 ML IV SCH (11:07)
[2022-11-16] MEDS ORDERED: LIDOCAINE 1% (10MG/ML) FOR IV START INTRADERMA PRN (11:07)
[2022-11-16 11:22] VITALS: TEMP 98.2
[2022-11-16] MEDS ORDERED: LIDOCAINE 2% INJ 20 MG/ML (2 ML VIAL) ONE (11:45)
[2022-11-16] MEDS ORDERED: PROPOFOL 10 MG/ML 20 ML VIAL IV ONE (11:45)
--- NOTE | 2022-11-16 11:47 | P.GSHP ---
History of Present Illness H&P Date: 11/16/22 Chief Complaint: GERD 37-year-old female here for EGD. Patient with mild reflux. Patient being evaluated for sleeve gastrectomy. No dysphagia. Past Medical History Past Medical History: Asthma History of Any Multi-Drug Resistant Organisms: MRSA Date of last positivie culture/infection: 2012 MDRO Source:: lt knee Past Surgical History: Appendectomy, Section, Orthopedic Surgery, Tonsillectomy Additional Past Surgical History / Comment(s): LT wrist SX, Past Anesthesia/Blood Transfusion Reactions: No Reported Reaction Smoking Status: Never smoker - Past Family History Mother Family Medical History: Hyperlipidemia, Hypertension, Rheumatoid Arthritis (RA) Medications and Allergies Home Medications Medication Instructions Recorded Confirmed Type Sertraline [Zoloft] 100 mg PO DAILY 10/14/22 11/16/22 History Ergocalciferol [Vitamin D2 (1250 50,000 unit PO WEEKLY 11/10/22 11/16/22 History Mcg = 02155 Iu)] Multivitamins, Thera [Multivitamin 1 tab PO DAILY 11/12/22 11/16/22 History (formulary)] Allergies Allergy/AdvReac Type Severity Reaction Status Date / Time No Known Allergies Allergy Verified 11/16/22 11:12 Surgical - Exam Vital Signs Temp Pulse Resp BP Pulse Ox 98.2 F 73 20 154/75 97 11/16/22 11:19 11/16/22 11:19 11/16/22 11:19 11/16/22 11:19 11/16/22 11:19 Physical exam: General: Well-developed, well-nourished HEENT: Normocephalic, sclerae nonicteric Abdomen: Nontender, nondistended Extremities: No edema Neuro: Alert and oriented Assessment and Plan (1) GERD (gastroesophageal reflux disease) Narrative/Plan: Will proceed with EGD at this time. Current Visit: Yes Status: Acute Code(s): K21.9 - GASTRO-ESOPHAGEAL REFLUX DISEASE WITHOUT ESOPHAGITIS SNOMED Code(s): 315535846
--- NOTE | 2022-11-16 11:54 | P.PCN ---
Date of Procedure: 11/16/22 Procedure(s) Performed: Preoperative Dx: GERD, presurgical Postoperative Dx: Mild gastritis Procedure: EGD with Bx Anesthesia: Sedation Endoscopist: Dr. Arechiga Specimens: Antrum Endoscopic Procedure: The patient was on the endoscopy table in the left decubitus position. The Olympus gastroscope was inserted into the oropharynx and passed under direct visualization to the region of the third portion of the duodenum. From that point the scope was slowly withdrawn inspecting all surfaces carefully. There were no neoplastic inflammatory or polypoid lesions throughout the duodenum. The pylorus was widely patent. The stomach was carefully inspected. There was mild gastritis. A biopsy of the antrum took place to rule out H. pylori. Retroflexion revealed a normal hiatus. The esophagus was then carefully examined. There were no neoplastic inflammatory or polypoid lesions throughout the visualized esophagus. The patient was then taken to the recovery room in stable condition per anesthesia guidelines. Recommendations: Await biopsy results. Follow-up bariatric clinic
[2022-11-16 12:24] VITALS: BP 153/88; PULSE 68; RESP 17
== END 2022-11-16 12:40 | disposition home or self-care (01) ==
LOC: ORWHC2ENDO 10:42
PROVIDERS: ATTEND Surgery
DX: K29.50 Unspecified chronic gastritis without bleeding (principal); K21.9 Gastro-esophageal reflux disease without esophagitis; J45.909 Unspecified asthma, uncomplicated; Z90.49 Acquired absence of other specified parts of digestive tract; Z98.891 History of uterine scar from previous surgery; Z90.89 Acquired absence of other organs; Z82.49 Family history of ischemic heart disease and other diseases of the circulatory system; Z83.49 Family history of other endocrine, nutritional and metabolic diseases; Z79.899 Other long term (current) drug therapy
CPT/HCPCS: 81025; 88305; 43239; J2704; J2001

== ENCOUNTER → 2023-01-04 | Outpatient (CLI) | payer BC ==
[2023-01-04 13:08] VITALS: BP 125/82; PULSE 75; TEMP 99; BMI 57.1
--- NOTE | 2023-01-04 17:46 | P.BASOAP ---
Subjective Progress Note Date: 01/04/23 Principal diagnosis: Morbid obesity Patient returns after recent EGD. Upper endoscopy on 11/16 showed mild gastritis. No hiatal hernia. No other changes to the previous history and physical. Patient remains interested in sleeve gastrectomy. BMI today 57. Objective - Vital Signs Vital signs: Vital Signs Temp 99 F 01/04/23 13:05 Pulse 75 01/04/23 13:05 Resp BP 125/82 01/04/23 13:05 Pulse Ox FiO2 Intake & Output 01/03/23 01/04/23 01/04/23 18:59 06:59 18:59 Weight 151.046 kg - Exam Abdomen: Soft, nontender, nondistended Assessment/Plan (1) Morbid obesity with BMI of 50.0-59.9, adult Narrative/Plan: 37-year-old female with morbid obesity. Patient remains interested in sleeve gastrectomy. Surgical consent form reviewed in detail. The risks of bleeding, infection, stenosis, stricture, leak, abscess, fistula formation, peritonitis, poor weight loss, reflux, vomiting, conversion to an open procedure, aborting sleeve gastrectomy, NE, PE, DVT, and were discussed. The patient understands and wishes to proceed. Plan: Date: 01/04/23 Initial Weight: Initial BMI: Current Weight: 151.046 kg Current BMI: 57.1 Type of Surgery: Total Volume in Band: Previous Volume: Volume Removed: Volume Added: Band Size:
== END ==
LOC: BARWHC3 12:46
PROVIDERS: ATTEND Surgery
DX: E66.01 Morbid (severe) obesity due to excess calories (principal); I21.9 Acute myocardial infarction, unspecified; I26.99 Other pulmonary embolism without acute cor pulmonale; I82.409 Acute embolism and thrombosis of unspecified deep veins of unspecified lower extremity; K29.70 Gastritis, unspecified, without bleeding; Z98.84 Bariatric surgery status; Z68.43 Body mass index [BMI] 50.0-59.9, adult; Z48.815 Encounter for surgical aftercare following surgery on the digestive system
CPT/HCPCS: 99211

== ENCOUNTER → 2023-03-30 | Outpatient (CLI) | payer BC ==
[2023-03-30 10:59] LABS: ALT 37 U/L (8-44); AST 29 U/L (13-35); Albumin 4.1 d/dL (3.8-4.9); Albumin/Globulin Ratio 1.78 Ratio (1.60-3.17); Alkaline Phosphatase 56 U/L (41-126); BUN/Creat Ratio 18.88 Ratio (12.00-20.00); Blood Urea Nitrogen 15.1 mg/dL (9.0-27.0); Calcium 8.9 mg/dL (8.7-10.3); Carbon Dioxide 24.2 mmol/L (21.6-31.8); Chloride 104 mmol/L (96-109); Globulin 2.3 d/dL (1.6-3.3); Glucose 110 mg/dL (70-110); Potassium 4.1 mmol/L (3.5-5.5); Sodium 140 mmol/L (135-145); Total Bilirubin 0.6 mg/dL (0.3-1.2); Total Protein 6.4 d/dL (6.2-8.2)
[2023-03-30 11:09] LABS: Basophils # (A) 0.03 X 10*3/uL (0.00-0.10); Basophils % (A) 0.6 %; Eosinophils # (A) 0.11 X 10*3/uL (0.04-0.35); Eosinophils % (A) 2.2 %; HCT 42.4 % (37.2-46.3); HGB 13.9 d/dL (12.0-15.0); Lymphocytes # (A) 0.77 X 10*3/uL (0.90-5.00); Lymphocytes % (A) 15.4 %; MCH 27.7 pg (27.0-32.0); MCHC 32.8 d/dL (32.0-37.0); MCV 84.6 FL (80.0-97.0); Monocytes # (A) 0.58 X 10*3/uL (0.20-1.00); Monocytes % (A) 11.6 %; NRBC Per 100 WBC 0 X 10*3/uL (0.00-0.01); Neutrophils % (A) 69.8 %; Platelet Count 198 X 10*3/uL (140-440); RBC 5.01 X 10*6/uL (4.10-5.20); RDW 13.5 % (11.5-14.5); WBC 5.01 X 10*3/uL (4.50-10.00)
== END | disposition home or self-care (01) ==
LOC: LABPAT 08:10
PROVIDERS: ATTEND Surgery
DX: Z01.812 Encounter for preprocedural laboratory examination (principal)
CPT/HCPCS: 36415; 80053; 85025; 86850; 86900; 86901

== ENCOUNTER 2023-04-04 12:05 | Inpatient (IN) | payer BC ==
--- NOTE | 2023-04-04 12:01 | P.GSHP ---
History of Present Illness H&P Date: 04/04/23 Chief Complaint: Morbid obesity 37-year-old female presenting today for elective laparoscopic da Smith-assisted sleeve gastrectomy. Patient initially seen in October. BMI 57. No tobacco use. History of mild reflux and asthma. Underwent EGD showing mild gastritis. Past Medical History Past Medical History: Asthma History of Any Multi-Drug Resistant Organisms: MRSA Date of last positivie culture/infection: 2012 MDRO Source:: lt knee Past Surgical History: Appendectomy, Section, Orthopedic Surgery, Tonsillectomy Additional Past Surgical History / Comment(s): LT wrist SX-no hardware Past Anesthesia/Blood Transfusion Reactions: No Reported Reaction Additional Past Anesthesia/Blood Transfusion Reaction / Comment(s): nohx of blood transfusions Smoking Status: Never smoker - Past Family History Mother Family Medical History: Hyperlipidemia, Hypertension, Rheumatoid Arthritis (RA) Medications and Allergies Home Medications Medication Instructions Recorded Confirmed Type Ergocalciferol [Vitamin D2 (1250 50,000 unit PO WEEKLY 11/10/22 03/31/23 History Mcg = 43243 Iu)] Multivitamins, Thera [Multivitamin 1 tab PO DAILY 11/12/22 03/31/23 History (formulary)] Allergies Allergy/AdvReac Type Severity Reaction Status Date / Time No Known Allergies Allergy Verified 03/31/23 14:17 Surgical - Exam Physical exam: General: Well-developed, well-nourished HEENT: Normocephalic, sclerae nonicteric Abdomen: Nontender, nondistended Extremities: No edema Neuro: Alert and oriented Assessment and Plan (1) Morbid obesity with BMI of 50.0-59.9, adult Narrative/Plan: 37-year-old female with morbid obesity. We'll proceed with laparoscopic da Smith assisted sleeve gastrectomy, possible open at this time. The risks of bleeding, infection, stenosis, stricture, leak, abscess, fistula formation, peritonitis, poor weight loss, reflux, vomiting, conversion to an open procedure, aborting sleeve gastrectomy, MO, PE, DVT, and were discussed. The patient understands and wishes to proceed. Status: Acute Code(s): E66.01 - MORBID (SEVERE) OBESITY DUE TO EXCESS CALORIES; Z68.43 - BODY MASS INDEX [BMI] 50.0-59.9, ADULT SNOMED Code(s): 499736418
[~2023-04-04 12:05] MED LIST: ACETAMINOPHEN TAB 500 MG TAB PO PRN; DEXAMETHASONE SOD PHOSPHATE 4 MG/ML 1 ML VIAL IV ONE; ENOXAPARIN 40 MG/0.4 ML SYRINGE SQ PRN; HYDROmorphone 0.5 MG/0.5 ML SYRINGE IVP PRN; LIDOCAINE 1% (10MG/ML) FOR IV START INTRADERMA PRN; ONDANSETRON 4 MG/2 ML VIAL IVP PRN; SCOPOLAMINE 1 MG/72 HR PATCH TRANSDERM ONE; ceFAZolin 3 GM in SODIUM CHLORIDE 0.9% 100 ML IVPB PRN; droPERidol 5 MG/2 ML VIAL IVP ONE
[2023-04-04] MEDS: LACTATED RINGERS 1,000 ML IV SCH (13:55)
[2023-04-04] MEDS ORDERED: BUPIVACAINE (PF) 0.25% 30 ML VIAL SQ ONE ×2 (14:10→14:41)
[2023-04-04] MEDS ORDERED: LACTATED RINGERS 1,000 ML IV ONE (16:12)
[2023-04-04] MEDS ORDERED: diphenhydrAMINE 50 MG/ML 1 ML VIAL IVP PRN (16:17)
[2023-04-04] MEDS ORDERED: SIMETHICONE 80 MG CHEWABLE PO PRN (16:17)
[2023-04-04] MEDS ORDERED: HYDROmorphone 1 MG/ML 1 ML SYRINGE IVP PRN (16:17)
[2023-04-04] MEDS ORDERED: HYDROmorphone 0.5 MG/0.5 ML SYRINGE IVP PRN (16:17)
[2023-04-04] MEDS ORDERED: NALOXONE 0.4 MG/ML 1 ML VIAL IV PRN (16:17)
--- NOTE | 2023-04-04 16:25 | P.OP ---
Date of Procedure: 04/04/23 Procedure(s) Performed: PREOPERATIVE DIAGNOSIS: Morbid obesity, asthma, GERD POSTOPERATIVE DIAGNOSIS: Same PROCEDURE: Da Smith assisted laparoscopic sleeve gastrectomy SURGEON: Geni EBL: Minimal ANESTHESIA: General COMPLICATIONS: None OPERATIVE PROCEDURE: Patient was placed in the operating table in the supine position. The patient was then placed under general anesthesia at that time. The abdomen was prepped and draped in the usual sterile fashion. A 5 mm optical trocar was placed in the left upper quadrant 20 cm inferior to the xiphoid process. Insufflation took place up to 15 mmHg. No adhesions were seen. A 5 mm subxiphoid incision was made and the medium Lucas retractor was used to e levate the left lobe of liver anteriorly. This was held in place using the fixed arm retractor. An additional 12 mm trocar was placed in the right paramedian location and 2 additional 8 mm trochars were placed in the left upper quadrant one medial and one lateral to the initially placed optical trocar. All of these trochars were placed along the same plane. The initial 5 was then switched to an 8 mm trocar. The robot was then docked appropriately. The 8 mm camera was placed in the left paramedian trocar site down viewing. A fenestrated bipolar was placed in arm 1, arm 3 had the vessel sealer, arm 4 had the small grasper retractor. The hiatus was inspected and there was no visible hiatal hernia. At that point I moved to the distal aspect of the greater curvature the stomach. The short gastric vasculature were divided using the vessel sealer. This dissection took place distally until we were 4 cm from the pylorus. The posterior adhesions were divided as well. The dissection then took place proximally along the stomach until the posterior short gastrics were divided and the fundus of the stomach was fully mobilized. Once the stomach was fully mobilized the blunt tipped 40[place] bougie dilator was advanced into the stomach and advanced all the way to the prepyloric location. The patient's stomach by palpation seemed to be of average thickness. Ethicon SLR buttress material was used at each staple load. The first load of the stapler was black, the second 2 loads were green, the remaining 4 loads were blue. The stomach was then placed in the right upper quadrant after it was fully excised. The oral gastric tube was reinserted. The stomach was insufflated with approximately 100 mL of methylene blue. No evidence of leak or obstruction was seen. Pressure was then dropped to 8 mm for 2-3 minutes. The staple line was inspected and 2-3 small areas of bleeding along the staple line were noted. These were controlled using both 12 mm clips and bipolar cautery. No further bleeding was seen. Tisseel fibrin glue was then used along the length of the staple line. The robot was then undocked. The da Smith laparoscope was used and the stomach was removed from the 12 mm trocar site without difficulty. The fascia at the 12mm site was closed using [id number] 0 Vicryl sutures with the laparoscopic suture passer and Jack Marco technique. Some bleeding was then noted from the initial 8 mm trocar entrance site. A Jack-Marco was used to place a single stitch at the fascial level and no further bleeding was seen. The insufflation was evacuated. The skin at all 5 incisions were closed using 4-0 Monocryl sutures. Skin glue was then applied. DISPOSITION: Stable to recovery room
[2023-04-04] MEDS ORDERED: droPERidol 5 MG/2 ML VIAL IVP ONE (16:51)
[2023-04-04] MEDS ORDERED: HYDROmorphone 0.5 MG/0.5 ML SYRINGE IVP ONE (16:58)
[2023-04-04] MEDS: ACETAMINOPHEN IV (For NPO) 1,000 MG in EMPTY BAG 1 BAG IVPB SCH ×2 (18:38→23:03)
[2023-04-04] MEDS: ONDANSETRON 4 MG/2 ML VIAL IVP PRN (18:38)
[2023-04-04] MEDS: 0.9% NACL WITH KCL 20 MEQ/L 1,000 ML IV SCH (18:38)
[2023-04-04] MEDS: HYOSCYAMINE ORAL DROPS 1.875 MG/15 ML BOTTLE PO PRN (20:23)
[2023-04-04] MEDS: ALBUTEROL NEBULIZED 2.5 MG/3 ML INHALATION SCH (21:13)
[2023-04-05] MEDS: 0.9% NACL WITH KCL 20 MEQ/L 1,000 ML IV SCH ×4 (00:30→18:27)
[2023-04-05] MEDS: ENOXAPARIN 40 MG/0.4 ML SYRINGE SQ SCH ×3 (03:25→20:25)
[2023-04-05] MEDS: ONDANSETRON 4 MG/2 ML VIAL IVP PRN (05:10)
[2023-04-05] MEDS: ACETAMINOPHEN IV (For NPO) 1,000 MG in EMPTY BAG 1 BAG IVPB SCH ×3 (05:10→18:26)
[2023-04-05] MEDS: HYOSCYAMINE ORAL DROPS 1.875 MG/15 ML BOTTLE PO PRN ×2 (05:15→18:30)
[2023-04-05] MEDS: LACTATED RINGERS 1,000 ML IV SCH (06:42)
[2023-04-05] MEDS ORDERED: hydrALAZINE HCL 20 MG/ML 1 ML VIAL IVP STA (06:55)
[2023-04-05] MEDS: ALBUTEROL NEBULIZED 2.5 MG/3 ML INHALATION SCH ×4 (07:54→20:33)
[2023-04-05] MEDS ORDERED: PROCHLORPERAZINE INJ 10 MG/2 ML VIAL IVP PRN (08:17)
[2023-04-05] MEDS: DEXAMETHASONE SOD PHOSPHATE 4 MG/ML 1 ML VIAL IVP SCH ×2 (08:26→16:01)
[2023-04-05] MEDS: KETOROLAC 15 MG/ML 1 ML VIAL IVP SCH ×3 (08:34→18:26)
[2023-04-05 08:45] LABS: Basophils # (A) 0 X 10*3/uL (0.00-0.10); Basophils % (A) 0 %; Eosinophils # (A) 0 X 10*3/uL (0.04-0.35); Eosinophils % (A) 0 %; HCT 40.6 % (37.2-46.3); HGB 13.2 d/dL (12.0-15.0); Lymphocytes # (A) 1.08 X 10*3/uL (0.90-5.00); Lymphocytes % (A) 14.7 %; MCH 27.6 pg (27.0-32.0); MCHC 32.5 d/dL (32.0-37.0); MCV 84.9 FL (80.0-97.0); Mean Platelet Volume 10.8 FL (9.5-12.2); Monocytes # (A) 0.51 X 10*3/uL (0.20-1.00); NRBC Per 100 WBC 0 X 10*3/uL (0.00-0.01); Neutrophils # (A) 5.71 X 10*3/uL (1.80-7.70); Neutrophils % (A) 77.9 %; Platelet Count 218 X 10*3/uL (140-440); RBC 4.78 X 10*6/uL (4.10-5.20); RDW 13.5 % (11.5-14.5); WBC 7.33 X 10*3/uL (4.50-10.00)
[2023-04-05 09:30] LABS: Blood Urea Nitrogen 9.1 mg/dL (9.0-27.0); Calcium 8.4 mg/dL (8.7-10.3); Carbon Dioxide 22.5 mmol/L (21.6-31.8); Chloride 102 mmol/L (96-109); Magnesium 1.7 mg/dL (1.5-2.4); Phosphorus 2.8 mg/dL (2.4-5.1); Potassium 4.3 mmol/L (3.5-5.5); Sodium 135 mmol/L (135-145)
[2023-04-05] MEDS: PANTOPRAZOLE 40 MG/10 ML VIAL IV SCH (10:51)
--- NOTE | 2023-04-05 11:47 | FL ---
EXAMINATION TYPE: FL UGI DATE OF EXAM: 04/05/2023 COMPARISON: None HISTORY: Gastric sleeve TECHNIQUE: A single contrast UGI study is performed. FINDINGS: Contrast passes from the distal esophagus through the gastric sleeve with marked hesitancy. No extravasation of contrast is evident. No free air is noted during this examination. Overhead radiographs were obtained which are unremarkable. IMPRESSION: 1. Marked hesitancy of contrast passing through the gastric sleeve. No extravasation.
[2023-04-05 11:51] VITALS: BMI 56.0
--- NOTE | 2023-04-05 13:03 | P.CONS ---
History of Present Illness - Reason for Consult Consult date: 04/05/23 Medical management - History of Present Illness History of present illness; patient is a 37-year-old lady with past medical history significant for asthma, GERD, obesity who presented to the hospital for elective laparoscopic sleeve gastrectomy. Patient is being seen in outpatient setting by surgery, patient was being considered for sleeve gastrectomy. Patient underwent EGD that showed gastritis. Decision was made to proceed with laparoscopic da Smith assisted sleeve gastrectomy to scheduled on 04/04. Initial lab work done after surgery showed WBC 7.33, hemoglobin 13.2, platelet count 118, sodium 135, potassium 4.3, BUN 9.1, creatinine 0.7 Patient was admitted to surgery and a consult was placed for internal medicine for medical management REVIEW OF SYSTEMS: CONSTITUTIONAL: No fever, no malaise, no fatigue. HEENT: No recent visual problems or hearing problems. Denied any sore throat. CARDIOVASCULAR: No chest pain, orthopnea, PND, no palpitations, no syncope. PULMONARY: No shortness of breath, no cough, no hemoptysis. GASTROINTESTINAL: Complaining of nausea and vomiting this morning NEUROLOGICAL: No headaches, no weakness, no numbness. HEMATOLOGICAL: Denies any bleeding or petechiae. GENITOURINARY: Denies any burning micturition, frequency, or urgency. MUSCULOSKELETAL/RHEUMATOLOGICAL: Denies any joint pain, swelling, or any muscle pain. ENDOCRINE: Denies any polyuria or polydipsia. The rest of the 14-point review of systems is negative. PHYSICAL EXAMINATION: GENERAL: The patient is alert and oriented x3, not in any acute distress. Well developed, well nourished. HEENT: Pupils are round and equally reacting to light. EOMI. No scleral icterus. No conjunctival pallor. Normocephalic, atraumatic. No pharyngeal erythema. No thyromegaly. CARDIOVASCULAR: S1 and S2 present. No murmurs, rubs, or gallops. PULMONARY: Chest is clear to auscultation, no wheezing or crackles. ABDOMEN: Soft, nontender, nondistended, normoactive bowel sounds. No palpable organomegaly. Laparoscopic surgical incision seen MUSCULOSKELETAL: No joint swelling or deformity. EXTREMITIES: No cyanosis, clubbing, or pedal edema. NEUROLOGICAL: Gross neurological examination did not reveal any focal deficits. SKIN: No rashes. Assessment and plan Status post laparoscopic sleeve Gastrectomy Morbid obesity Asthma GERD Monitor vital signs Monitor CBC Monitor CMP Continue anti-emetics Continue pain management per surgery Advance diet per surgery Labs and medication were reviewed.. Continue same treatment. Continue with symptomatic treatment. Resume home medication. Monitor labs and vitals. DVT and GI prophylaxis. Further recommendations as per clinical course of the pa natalie Dictation was produced using [employer] dictation software. please excuse any grammatical, word or spelling errors. Past Medical History Past Medical History: Asthma History of Any Multi-Drug Resistant Organisms: MRSA Year Discovered:: 2012 MDRO Source:: lt knee Past Surgical History: Appendectomy, Section, Orthopedic Surgery, Tonsillectomy Additional Past Surgical History / Comment(s): LT wrist SX-no hardware Past Anesthesia/Blood Transfusion Reactions: No Reported Reaction Additional Past Anesthesia/Blood Transfusion Reaction / Comm: nohx of blood guzman sfusions Past Psychological History: Anxiety, Depression Additional Psychological History / Comment(s): controlled with meds Smoking Status: Never smoker Past Alcohol Use History: None Reported, Rare Past Drug Use History: None Reported - Past Family History Mother Family Medical History: Hyperlipidemia, Hypertension, Rheumatoid Arthritis (RA) Medications and Allergies Home Medications Medication Instructions Recorded Confirmed Type Ergocalciferol [Vitamin D2 (1250 50,000 unit PO WEEKLY 11/10/22 03/31/23 History Mcg = 19851 Iu)] Multivitamins, Thera [Multivitamin 1 tab PO DAILY 11/12/22 03/31/23 History (formulary)] Allergies Allergy/AdvReac Type Severity Reaction Status Date / Time No Known Allergies Allergy Verified 04/04/23 13:02 Physical Exam Vitals: Vital Signs Temp Pulse Pulse Resp BP Pulse Ox 04/05/23 08:04 80 04/05/23 07:54 78 98 04/05/23 07:22 98.9 F 84 18 175/90 98 04/05/23 02:00 98.6 F 92 17 176/99 95 04/04/23 21:29 86 04/04/23 21:15 85 04/04/23 19:51 103 H 148/96 96 04/04/23 19:21 95 134/87 95 04/04/23 18:51 87 137/84 93 L 04/04/23 18:36 92 137/87 95 04/04/23 18:21 94 134/87 93 L 04/04/23 18:10 98.0 F 86 16 145/85 95 04/04/23 17:34 91 20 144/69 92 L 04/04/23 17:19 148/73 04/04/23 17:14 73 18 170/77 91 L 04/04/23 16:59 72 20 170/77 90 L 04/04/23 16:44 86 20 165/77 93 L 04/04/23 16:29 97.4 F L 67 18 171/86 98 04/04/23 13:13 99.1 F 79 16 134/67 97 Intake and Output 04/04/23 04/05/23 04/05/23 22:59 06:59 14:59 Intake Total 500 Output Total 25 Balance 475 Intake: IV 500 Output: Estimated Blood Loss 25 Other: # Voids 1 3 1 Weight 143.6 kg Results CBC & Chem 7: 04/05/23 05:54 04/05/23 05:54 Labs: Abnormal Lab Results - Last 24 Hours (Table) 04/05/23 04/05/23 Range/Units 05:54 05:54 Eosinophils # 0 L (0.04-0.35) X 10*3/uL Calcium 8.4 L (8.7-10.3) mg/dL
--- NOTE | 2023-04-05 14:02 | P.PN ---
Subjective Progress Note Date: 04/05/23 CHIEF COMPLAINT: Morbid obesity HISTORY OF PRESENT ILLNESS: Postop day #1 status post sleeve gastrectomy. Upper GI reports marked hesitancy of contrast passing through the gastric sleeve. No extravasation. Patient did complain of abdominal pain. She had been having vomiting earlier with small amount of emesis with old dark blood noted per nursing staff. Patient reports that her nausea is better now. She denies any flatus. She has been up and ambulating. She was hypertensive and required hydralazine. Afebrile. WBC 7.33 Hgb 13.2 platelets 218 sodium is 135 potassium 4.3 creatinine 0.7 magnesium 1.7 PHYSICAL EXAM: VITAL SIGNS: Reviewed. GENERAL: Well-developed in no acute distress. ABDOMEN: Soft. Nondistended. Tender at top incision. Incision sites clean dry and intact. NEUROLOGIC: Alert and oriented. Cranial nerves II through XII grossly intact. ASSESSMENT: 1. Morbid obesity status post laparoscopic sleeve gastrectomy 2. Asthma 3. GERD PLAN: -Start bariatric clear liquids -Toradol added for pain control -Continue IV fluids -Continue antiemetics -Continue scheduled Decadron -Encourage patient to ambulate -DVT prophylaxis Lovenox and GI prophylaxis protonix Physician [place]stone Inspector Repairer note has been reviewed by physician. Signing provider agrees with the documented findings, assessment, and plan of care. I have personally seen and examined the patient, reviewed the BALLOON MAKER /PAs history, exam and MDM and agree with the assessment and plan as written. Based on total visit time, I have performed more than 50% of the visit. As above: Patient had nausea and some vomiting last night. Feels better today. Upper GI, lab work, and vitals reviewed. Benign exam. Continue bariatric liquids. Reassess tomorrow. Objective - Vital Signs Vital signs: Vital Signs Temp 98.9 F 04/05/23 07:22 Pulse 80 04/05/23 08:04 Resp 18 04/05/23 07:22 BP 175/90 04/05/23 07:22 Pulse Ox 98 04/05/23 07:54 FiO2 Intake & Output 04/04/23 04/05/23 04/05/23 18:59 06:59 18:59 Intake Total 1600 Output Total 25 Balance 1575 Weight 143.6 kg Intake: IV 1600 Output: Estimated Blood Loss 25 Other: # Voids 3 1 - Labs CBC & Chem 7: 04/05/23 05:54 04/05/23 05:54 Labs: Abnormal Lab Results - Last 24 Hours (Table) 04/05/23 04/05/23 Range/Units 05:54 05:54 Eosinophils # 0 L (0.04-0.35) X 10*3/uL Calcium 8.4 L (8.7-10.3) mg/dL
[2023-04-06 00:04] VITALS: RESP 19
[2023-04-06] MEDS: KETOROLAC 15 MG/ML 1 ML VIAL IVP SCH ×3 (00:14→11:41)
[2023-04-06] MEDS: DEXAMETHASONE SOD PHOSPHATE 4 MG/ML 1 ML VIAL IVP SCH ×2 (00:14→08:23)
[2023-04-06] MEDS: ACETAMINOPHEN IV (For NPO) 1,000 MG in EMPTY BAG 1 BAG IVPB SCH ×3 (00:15→11:42)
[2023-04-06] MEDS: 0.9% NACL WITH KCL 20 MEQ/L 1,000 ML IV SCH (06:03)
[2023-04-06] MEDS: LACTATED RINGERS 1,000 ML IV SCH (06:04)
[2023-04-06] MEDS ORDERED: bisacodyL 5 MG TABLET.DR PO PRN (08:00)
[2023-04-06 08:22] VITALS: BP 133/80; TEMP 98.6
[2023-04-06] MEDS: PANTOPRAZOLE 40 MG/10 ML VIAL IV SCH (08:23)
[2023-04-06] MEDS: ENOXAPARIN 40 MG/0.4 ML SYRINGE SQ SCH (08:23)
[2023-04-06] MEDS: ALBUTEROL NEBULIZED 2.5 MG/3 ML INHALATION SCH ×2 (09:23→12:41)
[2023-04-06 09:43] VITALS: PULSE 88
--- NOTE | 2023-04-06 11:51 | P.DS ---
Providers Date of admission: 04/04/23 12:27 Expected date of discharge: 04/06/23 Attending physician: Antwan Arechiga Consults: 04/04/23 16:17 Consult Physician Routine Consulting Provider: Jessa Brown Consult Reason/Comments: med mgmt Do you want consulting provider notified?: Yes Primary care physician: Stated None Hospital Course: Discharge diagnosis 1. Morbid obesity 2. Asthma 3. GERD Hospital course This is a 37-year-old female with a history of morbid obesity. She is status post da Smith-assisted laparoscopic sleeve gastrectomy. Patient's upper GI had shown marked hesitancy of contrast passing through the gastric sleeve. No extravasation. Patient is tolerating diet. Her pain is controlled. She has been up and ambulating. She is having flatus. Denies any difficulty with urinating. She is afebrile. Incision sites are clean dry and intact. She is stable for discharge. Please refer to chart for any further details. Physician Food Adviser note has been reviewed by physician. Signing provider agrees with the documented findings, assessment, and plan of care. Patient Condition at Discharge: Stable Plan - Discharge Summary Discharge Rx Participant: No New Discharge Prescriptions: New Simethicone 40 mg/0.6 ml Drops [Mylicon Drops] 40 mg PO PCHS PRN #30 ml PRN Reason: Gas Omeprazole [PriLOSEC] 40 mg PO DAILY #30 cap Acetaminophen Tab [Tylenol] 1,000 mg PO Q6HR PRN #30 tablet PRN Reason: Pain bisacodyL [Dulcolax] 5 mg PO DAILY PRN #10 tab PRN Reason: Constipation Ondansetron Odt [Zofran Odt] 4 mg PO Q8HR PRN #9 tab PRN Reason: Nausea Continue Ergocalciferol [Vitamin D2 (1250 Mcg = 30912 Iu)] 50,000 unit PO WEEKLY Multivitamins, Thera [Multivitamin (formulary)] 1 tab PO DAILY Discharge Medication List Ergocalciferol [Vitamin D2 (1250 Mcg = 07129 Iu)] 50,000 unit PO WEEKLY 11/10/22 [History] Multivitamins, Thera [Multivitamin (formulary)] 1 tab PO DAILY 11/12/22 [History] Acetaminophen Tab [Tylenol] 1,000 mg PO Q6HR PRN #30 tablet 04/06/23 [Rx] Omeprazole [PriLOSEC] 40 mg PO DAILY #30 cap 04/06/23 [Rx] Ondansetron Odt [Zofran Odt] 4 mg PO Q8HR PRN #9 tab 04/06/23 [Rx] Simethicone 40 mg/0.6 ml Drops [Mylicon Drops] 40 mg PO PCHS PRN #30 ml 04/06/23 [Rx] bisacodyL [Dulcolax] 5 mg PO DAILY PRN #10 tab 04/06/23 [Rx] [facility] 1 Week Activity/Diet/Wound Care/Special Instructions: No lifting over 10 pounds You may shower. No soaking or tub baths for 2 weeks Very light activity until you are reevaluated at your follow up appointment with your surgeon No straws or carbonated beverages Discharge Disposition: HOME SELF-CARE
--- NOTE | 2023-04-06 13:27 | P.PN ---
Subjective Progress Note Date: 04/06/23 patient is a 37-year-old lady with past medical history significant for asthma, GERD, obesity who presented to the hospital for elective laparoscopic sleeve gastrectomy. Patient is being seen in outpatient setting by surgery, patient was being considered for sleeve gastrectomy. Patient underwent EGD that showed gastritis. Decision was made to proceed with laparoscopic da Smith assisted sleeve gastrectomy to scheduled on 04/04. Initial lab work done after surgery showed WBC 7.33, hemoglobin 13.2, platelet count 118, sodium 135, potassium 4.3, BUN 9.1, creatinine 0.7 Patient was admitted to surgery and a consult was placed for internal medicine for medical management 04/06. Patient seen and examined. States she is doing much better. No nausea or vomiting. Tolerating diet. Patient is medically stable for discharge REVIEW OF SYSTEMS: CONSTITUTIONAL: No fever, no malaise,. CARDIOVASCULAR: No chest pain, no palpitations, no syncope. PULMONARY: No shortness of breath, no cough, GASTROINTESTINAL: No diarrhea, no nausea, no vomiting, no abdominal pain. NEUROLOGICAL: No headaches, no weakness, PHYSICAL EXAMINATION: GENERAL: The patient is alert and oriented x3, not in any acute distress. Well developed, well nourished. HEENT: Pupils are round and equally reacting to light. EOMI. No scleral icterus. No conjunctival pallor. Normocephalic, atraumatic. No pharyngeal erythema. No thyromegaly. CARDIOVASCULAR: S1 and S2 present. No murmurs, rubs, or gallops. PULMONARY: Chest is clear to auscultation, no wheezing or crackles. ABDOMEN: Soft, nontender, nondistended, normoactive bowel sounds. No palpable organomegaly. Laparoscopic surgical incision seen MUSCULOSKELETAL: No joint swelling or deformity. EXTREMITIES: No cyanosis, clubbing, or pedal edema. NEUROLOGICAL: Gross neurological examination did not reveal any focal deficits. SKIN: No rashes. Assessment and plan Status post laparoscopic sleeve Gastrectomy Morbid obesity Asthma GERD Monitor vital signs Monitor CBC Monitor CMP Continue anti-emetics Continue pain management per surgery patient is stable for discharge Labs and medication were reviewed.. Continue same treatment. Continue with symptomatic treatment. Resume home medication. Monitor labs and vitals. DVT and GI prophylaxis. Further recommendations as per clinical course of the patient Dictation was produced using [employer] dictation software. please excuse any grammatical, word or spelling errors. Objective - Vital Signs Vital signs: Vital Signs Temp 98.6 F 04/06/23 07:35 Pulse 88 04/06/23 12:52 Resp 19 04/06/23 07:35 BP 133/80 04/06/23 07:35 Pulse Ox 97 04/06/23 07:35 FiO2 Intake & Output 04/05/23 04/06/23 04/06/23 18:59 06:59 18:59 Weight 143.6 kg Other: Voiding Method Toilet # Voids 2 2 - Labs CBC & Chem 7: 04/05/23 05:54 04/05/23 05:54
== END 2023-04-06 15:11 | disposition home or self-care (01) | DRG 621 ==
LOC: 2ORMAIN 12:27 → 4SSUR 17:02
PROVIDERS: ADMIT Surgery; ATTEND Surgery
PROC: 8E0W4CZ Robotic Assisted Procedure of Trunk Region, Percutaneous Endoscopic Approach (ICD-10-PCS; 2023-04-04)
PROC: 0DB64Z3 Excision of Stomach, Percutaneous Endoscopic Approach, Vertical (ICD-10-PCS; principal; 2023-04-04 14:05)
DX: E66.01 Morbid (severe) obesity due to excess calories (principal); J45.909 Unspecified asthma, uncomplicated; K21.9 Gastro-esophageal reflux disease without esophagitis; K29.70 Gastritis, unspecified, without bleeding; F32.A Depression, unspecified; F41.9 Anxiety disorder, unspecified; Z68.43 Body mass index [BMI] 50.0-59.9, adult; Z86.14 Personal history of Methicillin resistant Staphylococcus aureus infection
CPT/HCPCS: 74240; 80051; 81025; 82310; 82565; 83735; 84100; 84520; 85025; 94640; 94760

== ENCOUNTER → 2023-04-08 | Outpatient (CLI) | payer BC ==
[2023-04-08 11:51] VITALS: BP 156/101; PULSE 73; RESP 12; TEMP 98.1; BMI 53.0
== END ==
LOC: BARWHC3 11:05
PROVIDERS: ATTEND Surgery
DX: E66.01 Morbid (severe) obesity due to excess calories (principal); F33.0 Major depressive disorder, recurrent, mild; Z68.43 Body mass index [BMI] 50.0-59.9, adult
CPT/HCPCS: 99211; 99212

== ENCOUNTER → 2023-04-08 | Outpatient (CLI) | payer BC ==
[~2023-04-08] MED LIST changes: -ACETAMINOPHEN TAB 500 MG TAB PO PRN; +DEXAMETHASONE SOD PHOSPHATE 4 MG/ML 1 ML VIAL IV NR; -DEXAMETHASONE SOD PHOSPHATE 4 MG/ML 1 ML VIAL IV ONE; -ENOXAPARIN 40 MG/0.4 ML SYRINGE SQ PRN; -HYDROmorphone 0.5 MG/0.5 ML SYRINGE IVP PRN; -LIDOCAINE 1% (10MG/ML) FOR IV START INTRADERMA PRN; +ONDANSETRON 4 MG/2 ML VIAL IVP NR; -ONDANSETRON 4 MG/2 ML VIAL IVP PRN; -SCOPOLAMINE 1 MG/72 HR PATCH TRANSDERM ONE; +SODIUM CHLORIDE 0.9% 2,000 ML IV NR; +SODIUM CHLORIDE 0.9% 500 ML 500 ML in EMPTY BAG 1 BAG IV PRN; -ceFAZolin 3 GM in SODIUM CHLORIDE 0.9% 100 ML IVPB PRN; -droPERidol 5 MG/2 ML VIAL IVP ONE
[2023-04-08 12:14] VITALS: BP 119/81; PULSE 64; RESP 15; TEMP 97.1
== END ==
LOC: PROCWHC3 11:40
PROVIDERS: ATTEND Surgery
DX: E86.0 Dehydration (principal)
CPT/HCPCS: 96361; 96374; 96375; J1100; J2405; 96360

== ENCOUNTER → 2023-04-12 | Outpatient (CLI) | payer BC ==
[2023-04-12 13:09] VITALS: BP 127/58; PULSE 68; TEMP 98.4; BMI 51.5
--- NOTE | 2023-04-12 13:56 | P.BASOAP ---
Subjective Progress Note Date: 04/12/23 Principal diagnosis: Morbid obesity Patient returns for recheck. Underwent sleeve gastrectomy 1 week ago. Doing fairly well. She did come in for fluid hydration on Tuesday. She is now getting about 40-50 ounces of liquids daily. 28 g of protein daily. Mild fatigue. Overall feeling much better. No GERD, dysphagia, no vomiting. Objective - Vital Signs Vital signs: Vital Signs Temp 98.4 F 04/12/23 12:46 Pulse 68 04/12/23 12:46 Resp BP 127/58 04/12/23 12:46 Pulse Ox FiO2 Intake & Output 04/11/23 04/12/23 04/12/23 18:59 06:59 18:59 Weight 136.078 kg - Exam Abdomen: Soft, nondistended, incisions clean and dry Assessment/Plan (1) Morbid obesity with BMI of 50.0-59.9, adult Narrative/Plan: Patient overall doing fairly well. Continue increasing fluid and protein intake. May resume part-time work. Recheck 3 weeks. Plan: Date: 04/12/23 Initial Weight: Initial BMI: Current Weight: 136.078 kg Current BMI: 51.5 Type of Surgery: Total Volume in Band: Previous Volume: Volume Removed: Volume Added: Band Size:
== END ==
LOC: BARWHC3 12:27
PROVIDERS: ATTEND Surgery
DX: E66.01 Morbid (severe) obesity due to excess calories (principal); Z98.84 Bariatric surgery status; Z71.3 Dietary counseling and surveillance; Z68.51 Body mass index [BMI] pediatric, less than 5th percentile for age
CPT/HCPCS: 97803; 99211

== ENCOUNTER → 2023-05-03 | Outpatient (CLI) | payer BC ==
[2023-05-03 14:39] VITALS: BP 137/86; PULSE 81; RESP 16; TEMP 98.1; BMI 48.9
--- NOTE | 2023-05-03 14:55 | P.BASOAP ---
Subjective Progress Note Date: 05/03/23 Principal diagnosis: Morbid obesity Patient returns for recheck. She is one month post sleeve gastrectomy. States she was doing well up until last Tuesday. She woke up feeling somewhat nauseated. Nausea has persisted. No dysphagia, no GERD, no pain. Patient has not had food get stuck. She has tried tuna and eggs without difficulties. She had 32 ounces of liquids yesterday and 46 ounces of liquids the day before. She did have IV fluids once after surgery was performed. She is due for lab work. Heart rate today is normal. No fevers. No sick contacts no diarrhea. Objective - Vital Signs Vital signs: Vital Signs Temp 98.1 F 05/03/23 14:15 Pulse 81 05/03/23 14:15 Resp 16 05/03/23 14:15 BP 137/86 05/03/23 14:15 Pulse Ox FiO2 Intake & Output 05/02/23 05/03/23 05/03/23 18:59 06:59 18:59 Weight 129.274 kg - Exam Abdomen: Soft, nontender, nondistended Assessment/Plan (1) Morbid obesity with BMI of 50.0-59.9, adult Narrative/Plan: 37-year-old female complaining of dysphagia nausea after recent sleeve gastrectomy. We'll provide prescription for Compazine. She needs a refill of omeprazole. Continue encouraging oral intake. Patient met with dietary today. Plan follow up in 2 weeks. We'll have a phone call recheck on her in the next 24-48 hours. Plan: Date: 05/03/23 Initial Weight: 129.274 kg Initial BMI: 48.9 Current Weight: 129.274 kg Current BMI: 48.9 Type of Surgery: Vertical Sleeve Gastrectomy Total Volume in Band: Previous Volume: Volume Removed: Volume Added: Band Size:
== END ==
LOC: BARWHC3 13:46
PROVIDERS: ATTEND Surgery
DX: E66.01 Morbid (severe) obesity due to excess calories (principal); R13.10 Dysphagia, unspecified; Z68.41 Body mass index [BMI] 40.0-44.9, adult
CPT/HCPCS: 97803; 99211

== ENCOUNTER → 2023-05-17 | Outpatient (CLI) | payer BC ==
[2023-05-17 13:12] VITALS: BP 134/83; PULSE 80; RESP 16; TEMP 98.8; BMI 48.5
--- NOTE | 2023-05-17 14:53 | P.BASOAP ---
Subjective Progress Note Date: 05/17/23 Principal diagnosis: Morbid obesity Patient returns for recheck. Last seen on 05/03. Sleeve was on 04/04. Last visit she had some issues with dehydration. She took Compazine which corrected her nausea issues. She is doing quite well since then. Over 60 g of protein and 60 ounces of liquids daily. She had blood work today. She is tolerating both liquids and solids. No GERD symptoms. 3 pound weight loss since last visit. Objective - Vital Signs Vital signs: Vital Signs Temp 98.8 F 05/17/23 13:06 Pulse 80 05/17/23 13:06 Resp 16 05/17/23 13:06 BP 134/83 05/17/23 13:06 Pulse Ox FiO2 Intake & Output 05/16/23 05/17/23 05/17/23 18:59 06:59 18:59 Weight 128.367 kg - Exam Physical exam: General: Well-developed, well-nourished HEENT: Normocephalic, sclerae nonicteric Abdomen: Nontender, nondistended Extremities: No edema Neuro: Alert and oriented Assessment/Plan (1) Morbid obesity with BMI of 50.0-59.9, adult Narrative/Plan: Patient doing well after recent sleeve gastrectomy. Continue encouraging oral intake. Begin exercise routine. Continue antiacids for now. Follow-up 4-6 weeks. Plan: Date: 05/17/23 Initial Weight: 129.274 kg Initial BMI: 48.9 Current Weight: 128.367 kg Current BMI: 48.5 Type of Surgery: Vertical Sleeve Gastrectomy Total Volume in Band: Previous Volume: Volume Removed: Volume Added: Band Size:
[2023-05-17 15:46] LABS: HCT 41.3 % (37.2-46.3); HGB 13.1 g/dL (12.0-15.0); MCHC 31.7 g/dL (32.0-37.0); MCV 88.2 FL (80.0-97.0); Mean Platelet Volume 12.6 FL (9.5-12.2); NRBC Per 100 WBC 0 X 10*3/uL (0.00-0.01); Platelet Count 171 X 10*3/uL (140-440); RBC 4.68 X 10*6/uL (4.10-5.20); RDW 14.6 % (11.5-14.5); WBC 4.15 X 10*3/uL (4.50-10.00)
[2023-05-17 21:21] LABS: ALT 21 U/L (8-44); AST 13 U/L (13-35); Albumin 3.9 g/dL (3.8-4.9); Albumin/Globulin Ratio 1.95 Ratio (1.60-3.17); Alkaline Phosphatase 44 U/L (41-126); BUN/Creat Ratio 16.29 Ratio (12.00-20.00); Blood Urea Nitrogen 11.4 mg/dL (9.0-27.0); Calcium 9.3 mg/dL (8.7-10.3); Carbon Dioxide 22.5 mmol/L (21.6-31.8); Chloride 107 mmol/L (96-109); Glucose 97 mg/dL (70-110); Iron 52 UG/DL (50-170); Sodium 142 mmol/L (135-145); Total Bilirubin 0.4 mg/dL (0.3-1.2); Total Protein 5.9 g/dL (6.2-8.2)
== END ==
LOC: BARWHC3 08:07
PROVIDERS: ATTEND Surgery
DX: E66.01 Morbid (severe) obesity due to excess calories (principal); K90.89 Other intestinal malabsorption; Z71.3 Dietary counseling and surveillance; Z98.84 Bariatric surgery status; Z68.42 Body mass index [BMI] 45.0-49.9, adult
CPT/HCPCS: 80053; 82306; 82607; 82746; 83540; 84425; 85027; 97803; 99211

== ENCOUNTER → 2023-07-12 | Outpatient (CLI) | payer BC ==
[2023-07-12 13:35] VITALS: BP 141/90; PULSE 90; RESP 16; TEMP 98.6; BMI 43.7
--- NOTE | 2023-07-12 14:08 | P.BASOAP ---
Subjective Progress Note Date: 07/12/23 Principal diagnosis: Morbid obesity Patient doing well today. Last seen in May. Excellent weight loss since last visit. No GERD symptoms. No nausea or vomiting. No pain. Patient still taking antiacids daily. She is due for 3-month blood work. She has lost 28 pounds. Objective - Vital Signs Vital signs: Vital Signs Temp 98.6 F 07/12/23 13:29 Pulse 90 07/12/23 13:29 Resp 16 07/12/23 13:29 BP 141/90 07/12/23 13:29 Pulse Ox FiO2 Intake & Output 07/11/23 07/12/23 07/12/23 18:59 06:59 18:59 Weight 115.666 kg - Exam Abdomen: Soft, nontender, nondistended Assessment/Plan (1) Morbid obesity with BMI of 50.0-59.9, adult Narrative/Plan: 38-year-old female doing well at this time. Underwent sleeve gastrectomy 3 months ago. Check 3-month labs. Start every other day antiacids. Follow-up 6 weeks. Plan: Date: 07/12/23 Initial Weight: 129.274 kg Initial BMI: 48.9 Current Weight: 115.666 kg Current BMI: 43.7 Type of Surgery: Vertical Sleeve Gastrectomy Total Volume in Band: Previous Volume: Volume Removed: Volume Added: Band Size:
== END ==
LOC: BARWHC3 13:08
PROVIDERS: ATTEND Surgery
DX: E66.01 Morbid (severe) obesity due to excess calories (principal); Z71.3 Dietary counseling and surveillance; Z98.84 Bariatric surgery status; Z68.41 Body mass index [BMI] 40.0-44.9, adult
CPT/HCPCS: 97803; 99211

== ENCOUNTER → 2023-08-30 | Outpatient (CLI) | payer BC ==
[2023-08-30 16:37] VITALS: BP 130/64; PULSE 71; RESP 16; TEMP 98.1; BMI 42.0
--- NOTE | 2023-08-30 17:15 | P.BASOAP ---
Subjective Progress Note Date: 08/30/23 Principal diagnosis: Morbid obesity Patient returns for recheck. Last seen 1 month ago. She is taking antiacids 2- 3 times per week. She has lost 10 pounds. She is due for lab work. No complaints. Objective - Vital Signs Vital signs: Vital Signs Temp 98.1 F 08/30/23 16:10 Pulse 71 08/30/23 16:10 Resp 16 08/30/23 16:10 BP 130/64 08/30/23 16:10 Pulse Ox FiO2 Intake & Output 08/29/23 08/30/23 08/30/23 18:59 06:59 18:59 Weight 111.13 kg - Exam Abdomen: Soft, nontender, nondistended Assessment/Plan (1) Morbid obesity with BMI of 50.0-59.9, adult Narrative/Plan: Patient doing well at this time. Continue antiacids every few days. Continue increasing activity. Follow-up 6 weeks. Plan: Date: 08/30/23 Initial Weight: 129.274 kg Initial BMI: 48.9 Current Weight: 111.13 kg Current BMI: 42.0 Type of Surgery: Vertical Sleeve Gastrectomy Total Volume in Band: Previous Volume: Volume Removed: Volume Added: Band Size:
== END ==
LOC: BARWHC3 15:42
PROVIDERS: ATTEND Surgery
DX: E66.01 Morbid (severe) obesity due to excess calories (principal); Z68.43 Body mass index [BMI] 50.0-59.9, adult; Z71.3 Dietary counseling and surveillance
CPT/HCPCS: 99211

== ENCOUNTER → 2023-10-06 | Outpatient (CLI) | payer BC ==
[2023-10-06 18:55] LABS: HCT 39.6 % (37.2-46.3); HGB 12.6 g/dL (12.0-15.0); MCH 28.4 pg (27.0-32.0); MCHC 31.8 g/dL (32.0-37.0); MCV 89.2 FL (80.0-97.0); Mean Platelet Volume 12.3 FL (9.5-12.2); NRBC Per 100 WBC 0 X 10*3/uL (0.00-0.01); Platelet Count 225 X 10*3/uL (140-440); RBC 4.44 X 10*6/uL (4.10-5.20); RDW 13.7 % (11.5-14.5); WBC 7.65 X 10*3/uL (4.50-10.00)
[2023-10-06 19:27] LABS: ALT 11 U/L (8-44); AST 17 U/L (13-35); Albumin/Globulin Ratio 1.82 Ratio (1.60-3.17); Alkaline Phosphatase 63 U/L (41-126); BUN/Creat Ratio 26.86 Ratio (12.00-20.00); Blood Urea Nitrogen 18.8 mg/dL (9.0-27.0); Calcium 8.9 mg/dL (8.7-10.3); Carbon Dioxide 24.2 mmol/L (21.6-31.8); Chloride 105 mmol/L (96-109); Globulin 2.2 g/dL (1.6-3.3); Glucose 117 mg/dL (70-110); Iron 39 UG/DL (50-170); Potassium 4.1 mmol/L (3.5-5.5); Sodium 139 mmol/L (135-145); Total Bilirubin 0.3 mg/dL (0.3-1.2); Total Protein 6.2 g/dL (6.2-8.2)
== END | disposition home or self-care (01) ==
LOC: LABWHC1 12:52
PROVIDERS: ATTEND Surgery
DX: E55.9 Vitamin D deficiency, unspecified (principal); K90.89 Other intestinal malabsorption; E66.01 Morbid (severe) obesity due to excess calories
CPT/HCPCS: 36415; 80053; 82306; 82607; 82746; 83540; 84425; 85027

== ENCOUNTER → 2024-04-19 | Outpatient (CLI) | payer BC ==
--- NOTE | 2024-04-21 22:38 | MM ---
Reason for Exam: Screening (asymptomatic). Baseline mammogram. Patient History: Menarche at age 11. First Full-Term at age 23. Patient used Hormonal Contraceptives for 7 years. Maternal grandmother had breast cancer. Paternal grandmother had breast cancer. Last menstrual period: 04/06/2024 Risk Values: Sonam 5 year model risk: 0.5%. NCI Lifetime model risk: 9.1%. Prior Study Comparison: Patient's first Mammogram. No prior studies available for comparison. Tissue Density: There are scattered areas of fibroglandular density. Findings: Analyzed By CAD. The pattern is symmetrical. No significant interval change. Multiple benign-appearing punctate calcifications are present bilaterally No suspicious groups of microcalcifications, spiculated or lobular masses, architectural distortion or other secondary signs of malignancy are mammographically apparent. Overall Assessment: Benign, BI-RAD 2 Management: Screening Mammogram of both breasts in 1 year. A negative mammogram report should not preclude additional follow up of suspicious palpable abnormalities. Patient should continue monthly self breast exam. A clinical breast exam by your physician is recommended on an annual basis and results should be correlated with mammographic findings. Note on Sonam scores and lifetime risk: 1. A Sonam score greater than 3% is considered moderate risk. If this is the case, consider specialist referral to assess eligibility for a risk reducing agent. 2. If overall lifetime risk for the development of breast cancer is 20% or higher, the patient may qualify for future screening with alternating mammogram and breast MRI. [facility], , 04/21/2024 10:34 PM. Electronically signed and approved by: Lit Smith D.O. Radiologis
== END | disposition home or self-care (01) ==
LOC: RADMAMWWP 07:01
PROVIDERS: ATTEND Family Medicine
DX: Z12.31 Encounter for screening mammogram for malignant neoplasm of breast (principal); Z80.3 Family history of malignant neoplasm of breast; R92.323 Mammographic fibroglandular density, bilateral breasts
CPT/HCPCS: 77063; 77067

== ENCOUNTER → 2024-12-05 | Outpatient (CLI) | payer BC ==
--- NOTE | 2024-12-12 11:19 | MR ---
EXAMINATION TYPE: MR ankle LT wo con DATE OF EXAM: 12/05/2024 12:13 PM COMPARISON: Left ankle x-ray November 12, 2024 CLINICAL INDICATION: Female, 39 years old with history of M25.572 PAIN IN LEFT ANKLE AND JOINTS OF LE FT FOOT, Left ankle pain, injury 11-11-24. IV Contrast: cc (None if empty) Standard multiplanar, multisequence MRI departmental protocol Multiplanar, multisequence images of the left ankle were acquired without contrast. FINDINGS: There is slight increase T2 signal along the medial aspect of the navicular bone, this coul d reflect artifact versus mild abnormal bone marrow edema. Remainder of bone marrow signal intensity is preserved. No serpiginous diminished T1 signal to suggest stress fracture. Talar dome is maintaine d. There is small to moderate size joint effusion with both anterior and posterior components at level o f the talus. No capsular thickening. There is intact anterior talofibular ligament with surrounding fluid axial image 26. Intact posterior talofibular ligament. Anterior syndesmosis or tibiofibular ligament shows thickening with focal disc ontinuity consistent with grade 3 injury. There is thickening of the posterior syndesmosis or grade 2 injury. There is some blurring of the deltoid remain consistent with grade 1 or 2 injury. Loss of fa t is noted. Peroneal tendons posterior lateral aspect are intact. Flexor along the posterior medial aspect of the ankle are intact. Achilles tendon is intact. Moderate to large size inferior calcaneal spur is seen. Ankle mortise symmetry is maintained. Mild diffuse subcutaneous edema laterally is noted. IMPRESSION: 1. Grade 3 injury of the anterior syndesmosis or the anterior tibiofibular ligament. 2. Grade 1 or 2 injury of the medial deltoid ligament. Grade 2 injury of the posterior syndesmosis. 3. No tendon tears. Possible Mild abnormal bone marrow edema medial aspect medial navicular bone. Mil d lateral subcutaneous edema. [facility], , 12/12/2024 11:16 AM
== END | disposition home or self-care (01) ==
LOC: RADMRIMAIN 11:12
PROVIDERS: ATTEND Orthopaedic Surgery
DX: S93.432A Sprain of tibiofibular ligament of left ankle, initial encounter (principal)